=== PATIENT | female | born 1950 | race Caucasian/White ===

== ENCOUNTER 2018-08-27 10:22 | Observation (INO) | payer OTHER, BC ==
[2018-08-27] MEDS ORDERED: PANTOPRAZOLE INJ 80 MG in NA CHLORIDE 0.9% 250 ML IV ONE (11:15)
[2018-08-27] MEDS ORDERED: PANTOPRAZOLE 40 MG INJ ONE (11:17)
[2018-08-27] MEDS ORDERED: NA CHLORIDE 0.9% 1,000 ML ONE (11:17)
[2018-08-27 11:30] LABS: Absolute Lymphocytes (CBC) 1.7 K/uL (0.7-4.9); Absolute Monocytes 0.6 K/uL (0.1-1.3); Absolute Neutrophil 12.9 K/uL (1.8-8.0); Basophils % 0.5 % (0-1.3); Eosinophils % 0.1 % (0-4.4); Hematocrit 40.5 % (36.0-45.0); Lymphocytes % 10.9 % (15.3-44.8); MPV 9.9 fL (7.6-11.3); RBC Red Blood Cell Count 4.56 M/uL (3.86-4.86)
[2018-08-27 11:49] LABS: Albumin 3.4 g/dL (3.4-5.0); Bilirubin Direct 0.1 mg/dL (0-0.2); Bilirubin Total 0.8 mg/dL (0.2-1.0); Protein, Total 6.7 g/dL (6.4-8.2)
--- NOTE | 2018-08-27 12:18 | ER ---
Nurse's Notes [facility] Name: Minna Bernard Age: 67 yrs Sex: Female : 1950 Arrival Date: 08/27/2018 Time: 10:24 Bed 20 Private MD: Diagnosis: Epigastric pain;Gastrointestinal hemorrhage, unspecified Presentation: 08/27 10:32 Presenting complaint: Diarrhea and abdominal cramping x 2 days, bright red blood after hb BM x1 today. Transition of care: patient was not received from another setting of care. Onset of symptoms was August 26, 2018. Risk Assessment: Do you want to hurt yourself or someone else? Patient reports no desire to harm self or others. Care prior to arrival: None. 10:32 Method Of Arrival: Wheelchair hb 10:32 Acuity: FAM 3 hb 11:10 Initial Sepsis Screen: Does the patient meet any 2 criteria? No. Patient's initial sv sepsis screen is negative. Does the patient have a suspected source of infection? No. Patient's initial sepsis screen is negative. Historical: - Allergies: 10:34 No Known Allergies; hb - Home Meds: 10:34 Lipitor Oral [Active]; Lotrel Oral [Active]; hb - PMHx: 10:34 Hyperlipidemia; Hypertension; hb - PSHx: 10:34 Tummy Tuck; Cholecystectomy; hb - Immunization history:: Adult Immunizations up to date. - Social history:: Smoking status: Patient/guardian denies using tobacco, Patient uses Patient/guardian denies using alcohol, street drugs, The patient lives with family. - Ebola Screening: : No symptoms or risks identified at this time. - Family history:: not pertinent. Screenin:10 Abuse screen: Denies threats or abuse. Denies injuries from another. Nutritional sv screening: No deficits noted. Tuberculosis screening: No symptoms or risk factors identified. Fall Risk None identified. Assessment: 11:10 General: Appears in no apparent distress. comfortable, well groomed, well developed, sv Behavior is calm, cooperative, appropriate for age. Pain: Complains of pain in epigastric area Pain currently is 4 out of 10 on a pain scale. Quality of pain is described as crampy, Pain began this morning. Neuro: Level of Consciousness is awake, alert, obeys commands, Oriented to person, place, time, situation, Moves all extremities. Full function Gait is steady, Speech is normal. Respiratory: Respiratory effort is even, unlabored, Respiratory pattern is regular, symmetrical. GI: Abdomen is flat, Reports rectal bleeding. Derm: Skin is pink, warm \T\ dry. 12:37 Reassessment: Patient appears in no apparent distress at this time. No changes from sv previously documented assessment. Patient and/or family updated on plan of care and expected duration. Pain level reassessed. Patient is alert, oriented x 3, equal unlabored respirations, skin warm/dry/pink. 12:40 Reassessment: Dr Moore at the bedside. sv 14:00 Reassessment: Patient appears in no apparent distress at this time. No changes from sv previously documented assessment. Patient and/or family updated on plan of care and expected duration. Pain level reassessed. Patient is alert, oriented x 3, equal unlabored respirations, skin warm/dry/pink. 16:25 Reassessment: Nurse to call back for report. sv Vital Signs: 10:33 BP 103 / 91; Pulse 90; Resp 16; Temp 98.8; Pulse Ox 100% on R/A; Pain 4/10; hb 12:39 BP 126 / 56; Pulse 78; Resp 18; Pulse Ox 98% ; sv 13:30 BP 123 / 54; Pulse 71; Resp 18; Pulse Ox 99% ; sv 14:15 BP 123 / 45; Pulse 72; Resp 18; Pulse Ox 99% ; sv 15:36 BP 128 / 49; Pulse 73; Resp 16; Pulse Ox 100% ; sv 16:25 BP 126 / 51; Pulse 78; Resp 18; Pulse Ox 96% ; sv ED Course: 10:24 Patient arrived in ED. as 10:33 Triage completed. hb 10:33 Arm band placed on. hb 10:42 Viviana Mtz MD is Attending Physician. ma2 11:03 Tiffanie Candelaria RN is Primary Nurse. sv 11:10 Patient has correct armband on for positive identification. Bed in low position. Call light in reach. Adult w/ patient. Pulse ox on. NIBP on. Door closed. Warm blanket given. Head of bed elevated. 11:15 Initial lab(s) drawn, by me, sent to lab. Inserted saline lock: 22 gauge in right sv wrist, using aseptic technique. ,using aseptic technique. diffusics Blood collected. Flushed right with 5 ml normal saline. 11:18 Inserted saline lock: 20 gauge in right antecubital area, using aseptic technique. sv Flushed right antecubital with 5 ml normal saline. 12:16 Abner Moore DO is Hospitalizing Provider. ma2 12:19 Chest Single View XRAY In Process Unspecified. EDMS 16:24 No provider procedures requiring assistance completed. Patient admitted, IV remains in sv place. intact. Administered Medications: 11:34 Drug: NS 0.9% 1000 ml Route: IV; Rate: 1 bolus; Site: right wrist; sv 12:30 Follow up: Response: No adverse reaction; IV Status: Completed infusion; IV Intake: sv 1000ml 11:34 Drug: Pantoprazole 80 mg Route: IVP; Site: right wrist; sv 12:00 Follow up: Response: No adverse reaction sv 11:34 Drug: Pantoprazole 8 mg/hr Route: IV; Rate: 25 ml/hr; Site: right wrist; sv 16:42 Follow up: Response: No adverse reaction; IV Status: Infusion continued upon admission sv Intake: 12:30 IV: 1000ml; Total: 1000ml. sv Outcome: 12:16 Decision to Hospitalize by Provider. ma2 16:56 Admitted to Med/surg accompanied by tech, family with patient, via stretcher, room 216, sv with chart, Report called to Nelly DELACRUZ 16:56 Condition: stable 16:56 Instructed on the need for admit. 17:08 Patient left the ED. Signatures: Dispatcher [employer] EDTiffanie Guallpa RN RN sv Martinez, Amelia as Williams, Irene, RN RN Salud Mullen RN RN Viviana Mtz MD MD ma2
--- NOTE | 2018-08-27 12:18 | EDPHYS ---
Physician Documentation [facility] Name: Minna Bernard Age: 67 yrs Sex: Female : 1950 Arrival Date: 08/27/2018 Time: 10:24 Bed 20 Private MD: ED Physician Viviana Mtz HPI: 08/27 10:58 This 67 yrs old Female presents to ER via Wheelchair with complaints of ma2 Rectal Bleeding. 10:58 The patient presents to the emergency department with bleeding from the rectum/anus. ma2 Onset: The symptoms/episode began/occurred gradually, 1 day(s) ago. Context: the patient has no known special context relating to the rectal area complaint(s). Associate signs and symptoms: Pertinent positives: abdominal pain in the epigastric area, lower GI bleeding, Pertinent negatives: constipation, dysuria, fever. The patient has experienced similar episodes in the past. Historical: - Allergies: 10:34 No Known Allergies; hb - Home Meds: 10:34 Lipitor Oral [Active]; Lotrel Oral [Active]; hb - PMHx: 10:34 Hyperlipidemia; Hypertension; hb - PSHx: 10:34 Tummy Tuck; Cholecystectomy; hb - Immunization history:: Adult Immunizations up to date. - Social history:: Smoking status: Patient/guardian denies using tobacco, Patient uses Patient/guardian denies using alcohol, street drugs, The patient lives with family. - Ebola Screening: : No symptoms or risks identified at this time. - Family history:: not pertinent. ROS: 10:58 Constitutional: Negative for fever, chills, and weight loss, Cardiovascular: Negative ma2 for chest pain, palpitations, and edema, Respiratory: Negative for shortness of breath, cough, wheezing, and pleuritic chest pain, Abdomen/GI: Negative for abdominal pain, nausea, diarrhea, and constipation, MS/Extremity: Negative for injury and deformity, Neuro: Negative for headache, weakness, numbness, tingling, and seizure. 10:58 Abdomen/GI: Positive for abdominal pain, rectal bleeding. 10:58 All other systems are negative. Exam: 10:58 Constitutional: This is a well developed, well nourished patient who is awake, alert, ma2 and in no acute distress. Chest/axilla: Normal chest wall appearance and motion. Nontender with no deformity. No lesions are appreciated. Cardiovascular: Regular rate and rhythm with a normal S1 and S2. No gallops, murmurs, or rubs. Normal PMI, no JVD. No pulse deficits. Respiratory: Lungs have equal breath sounds bilaterally, clear to auscultation and percussion. No rales, rhonchi or wheezes noted. No increased work of breathing, no retractions or nasal flaring. Abdomen/GI: Soft, non-tender, with normal bowel sounds. No distension or tympany. No guarding or rebound. No evidence of tenderness throughout. Back: No spinal tenderness. No costovertebral tenderness. Full range of motion. Skin: Warm, dry with normal turgor. Normal color with no rashes, no lesions, and no evidence of cellulitis. MS/ Extremity: Pulses equal, no cyanosis. Neurovascular intact. Full, normal range of motion. Neuro: Awake and alert, GCS 15, oriented to person, place, time, and situation. Cranial nerves II-XII grossly intact. Motor strength 5/5 in all extremities. Sensory grossly intact. Cerebellar exam normal. Normal gait. Vital Signs: 10:33 BP 103 / 91; Pulse 90; Resp 16; Temp 98.8; Pulse Ox 100% on R/A; Pain 4/10; hb 12:39 BP 126 / 56; Pulse 78; Resp 18; Pulse Ox 98% ; sv 13:30 BP 123 / 54; Pulse 71; Resp 18; Pulse Ox 99% ; sv 14:15 BP 123 / 45; Pulse 72; Resp 18; Pulse Ox 99% ; sv 15:36 BP 128 / 49; Pulse 73; Resp 16; Pulse Ox 100% ; sv 16:25 BP 126 / 51; Pulse 78; Resp 18; Pulse Ox 96% ; sv MDM: 10:42 Patient medically screened. ma2 10:58 Differential diagnosis: epigastric abd pain ?gastritis vs pud + GI bleeding, no rectal ma2 pain. 12:15 Data reviewed: vital signs, nurses notes. Counseling: I had a detailed discussion with ma2 the patient and/or guardian regarding: the historical points, exam findings, and any diagnostic results supporting the discharge/admit diagnosis, the presence of at least one elevated blood pressure reading (>120/80) during this emergency department visit, the need for outpatient follow up. Response to treatment: the patient's symptoms have markedly improved after treatment. ED course: discussed with dr. de jesus and dr. norton nurse her name is Ms Ng. 08/27 10:52 Order name: Basic Metabolic Panel; Complete Time: 11:52 [facility] 08/27 10:52 Order name: CBC with Diff; Complete Time: 11:37 [facility] 08/27 10:52 Order name: Creatinine for Radiology [facility] 08/27 10:52 Order name: Hepatic Function; Complete Time: 11:52 [facility] 08/27 10:52 Order name: Lipase; Complete Time: 11:52 [facility] 08/27 10:52 Order name: Type And Screen [facility] 08/27 10:52 Order name: IV Saline Lock; Complete Time: 11:47 [facility] 08/27 10:52 Order name: Labs collected and sent; Complete Time: 11:47 [facility] 08/27 10:52 Order name: Chest Single View XRAY [facility] 08/27 13:17 Order name: ABO/RH no charge [facility] 08/27 11:47 Order name: Labs - recollect needed; Complete Time: 14:19 bd Administered Medications: 11:34 Drug: NS 0.9% 1000 ml Route: IV; Rate: 1 bolus; Site: right wrist; sv 12:30 Follow up: Response: No adverse reaction; IV Status: Completed infusion; IV Intake: sv 1000ml 11:34 Drug: Pantoprazole 80 mg Route: IVP; Site: right wrist; sv 12:00 Follow up: Response: No adverse reaction sv 11:34 Drug: Pantoprazole 8 mg/hr Route: IV; Rate: 25 ml/hr; Site: right wrist; sv 16:42 Follow up: Response: No adverse reaction; IV Status: Infusion continued upon admission sv Disposition: 08/27/18 12:16 Hospitalization ordered by Abner De Jesus for Inpatient Admission. Preliminary diagnosis are Epigastric pain, Gastrointestinal hemorrhage, unspecified. - Bed requested for Telemetry/MedSurg (Inpatient). - Status is Inpatient Admission. iw - Condition is Stable. - Problem is new. - Symptoms are unchanged. UTI on Admission? No Signatures: Dispatcher [employer] EDKY Jenise Harris Stephanie, RN RN sv Woody, Diana, RN RN dw Williams, Irene, RN RN Salud Mullen RN RN Viviana Mtz MD MD ma2 Corrections: (The following items were deleted from the chart) 15:16 12:16 Hospitalization Ordered by Abner De Jesus DO for Inpatient Admission. Preliminary dw diagnosis is Epigastric pain; Gastrointestinal hemorrhage, unspecified. Bed requested for Telemetry/MedSurg (Inpatient). Status is Inpatient Admission. Condition is Stable. Problem is new. Symptoms are unchanged. UTI on Admission? No. ma2 17:08 15:16 08/27/2018 12:16 Hospitalization Ordered by Abner De Jesus DO for Inpatient iw Admission. Preliminary diagnosis is Epigastric pain; Gastrointestinal hemorrhage, unspecified. Bed requested for Telemetry/MedSurg (Inpatient). Status is Inpatient Admission. Condition is Stable. Problem is new. Symptoms are unchanged. UTI on Admission? No. dw
--- NOTE | 2018-08-27 12:23 | RAD REPORT ---
EXAM DESCRIPTION: RAD - Chest Single View - 08/27/2018 12:18 pm CLINICAL HISTORY: COUGH Chest pain. COMPARISON: No comparisons FINDINGS: Portable technique limits examination quality. The lungs are grossly clear. The heart is normal in size. No displaced fractures. IMPRESSION: No acute intrathoracic process suspected.
--- NOTE | 2018-08-27 16:02 | P.HP ---
Certification for Inpatient Patient admitted to: Inpatient With expected LOS: >2 Midnights Patient will require the following post-hospital care: None Practitioner: I am a practitioner with admitting privileges, knowledge of patient current condition, hospital course, and medical plan of care. Services: Services provided to patient in accordance with Admission requirements found in Title 42 Section 412.3 of the Code of Federal Regulations Patient History Date of Service: 08/27/18 Primary Care Provider: Dr. Bee([place], [place]); GI-Dr. Santos Reason for admission: Epigastric pain, rectal bleeding History of Present Illness: 67-year-old female presented to the emergency room with epigastric pain and rectal bleeding. Patient reported rectal bleeding today. She noted it on toilet paper. She then reported some mild diarrhea with blood in the stool. She denies significant melena. Over the past month she has been somewhat constipated with diarrhea as well. Patient with history of hypertension, hyperlipidemia and GERD. She reports having a colonoscopy about 6-8 years ago. She had colon polyps removed at that time. Patient also reports epigastric pain that comes and goes as well. Upon further history patient has been using diclofenac for arthritis pain. In the ER patient evaluated. Hemoglobin stable at 13.1, white count 15.2. Sodium 140, potassium 4.0, being of 31, creatinine 1.4 with a GFR of 37. Glucose 145. Lipase unremarkable. Chest x-ray unremarkable. Patient admitted for further evaluation. ER was able to contact GI who will see the patient as well. When I saw the patient ER, she appeared comfortable. No further excessive rectal bleeding noted. No coughing or vomiting of blood. Patient denies any significant chest pain, shortness of breath. She overdoes reports some mild fatigue. Allergies No Known Allergies Allergy (Unverified 08/27/18 11:07) Home medications list reviewed: Yes - Past Medical/Surgical History Diabetic: No -: Hypertension -: Hyperlipidemia -: GERD -: Arthritis, knees -: Cholecystectomy -: Tummy tuck -: Cataract Psychosocial/ Personal History: Patient is . She has 2 children. - Family History Father -: Cancer (Throat cancer) - Social History Smoking Status: Never smoker Alcohol use: No CD- Drugs: No Caffeine use: No Place of Residence: Home Review of Systems General: Weakness, Malaise, As per HPI Eyes: Unremarkable ENT: Unremarkable Respiratory: Unremarkable Cardiovascular: Unremarkable Gastrointestinal: Abdominal Pain, Diarrhea, Constipation, Hematochezia, As per HPI Genitourinary: Unremarkable Musculoskeletal: Unremarkable Integumentary: Unremarkable Neurological: Unremarkable Lymphatics: Unremarkable Physical Examination - Physical Exam General: Alert, In no apparent distress, Oriented x3, Cooperative HEENT: Atraumatic, Normocephalic, PERRLA, Mucous membr. moist/pink Neck: Supple, No Thyromegaly Respiratory: Clear to auscultation bilaterally, Normal air movement Cardiovascular: Normal pulses, Regular rate/rhythm Gastrointestinal: Normal bowel sounds, Soft and benign, Non-distended, No ascites, No tenderness, No masses, No rebound, No guarding Musculoskeletal: No erythema, No tenderness, No warmth Integumentary: No tenderness/swelling, No erythema, No warmth, No cyanosis Neurological: Normal speech, Normal strength at 5/5 x4 extr, Normal tone, Normal affect - Studies Laboratory Data (last 24 hrs) 08/27/18 11:15: Creatinine 1.40 H 08/27/18 11:15: WBC 15.2 H, Hgb 13.1, Hct 40.5, Plt Count 283 08/27/18 11:15: Sodium 140, Potassium 4.0, BUN 31 H, Creatinine 1.40 H, Glucose 145 H, Total Bilirubin 0.8, AST 30, ALT 25, Alkaline Phosphatase 55, Lipase 89 Assessment and Plan - Plan Impression: Epigastric pain with rectal bleeding likely related to upper GI bleed complicated with chronic use of nonsteroidal anti-inflammatories Acute renal injury likely from dehydration and medication Hypertension Hyperlipidemia GERD Plan: Epigastric pain with rectal bleeding likely related to upper GI bleed complicated with chronic use of nonsteroidal anti-inflammatories: Patient will be admitted. Hemoglobin stable this time. Continue to monitor hemoglobin. If hemoglobin is significantly drops patient may require blood transfusion. Case discussed with GI. Patient will likely require EGD for further evaluation. Will discontinue diclofenac. Will teach about upper GI bleed. Patient started on IV Protonix drip and Rocephin. Await further recommendations from GI. Anticipate discharge in the next 48-72 hr. Acute renal injury likely from dehydration in medication: Will discontinue Lotrel and HCTZ at this time. Will monitor renal function. Continue IV fluids. Monitor hemoglobin closely. Continue as above. Hypertension: Will provide IV medication at this time. Will discontinue Lotrel and HCTZ due to acute renal insufficiency Hyperlipidemia: Hold medication at this time. GERD: Continue as above. Discharge Plan: Home Plan to discharge in: 72 Hours - Advance Directives Does patient have a Living Will: No Does patient have a Durable POA for Healthcare: No - Code Status/Comfort Care Code Status Assessed: Yes (Patient full code.) Time Spent Managing Pts Care (In Minutes): 55
[2018-08-27] MEDS ORDERED: ACETAMINOPHEN 650MG/RECT SUPP PR PRN (17:42)
[2018-08-27] MEDS ORDERED: ONDANSETRON 4 MG/2 ML VIAL IV PRN (17:42)
[2018-08-27] MEDS ORDERED: TRAMADOL HCL 50 MG TAB PO PRN (17:42)
[2018-08-27] MEDS ORDERED: MORPHINE 2 MG/ML SYR IV PRN (17:42)
[2018-08-27] MEDS ORDERED: HYDRALAZINE HCL 20 MG/ML VIAL IV PRN (17:42)
[2018-08-27] MEDS: NA CHLORIDE 0.9% 1,000 ML IV SCH ×2 (17:42→21:26)
[2018-08-27 18:06] LABS: Hematocrit 35.5 % (36.0-45.0)
[2018-08-27 18:35] LABS: Thyroid Stimulating Hormone 2.32 uIU/mL (0.360-3.740)
[2018-08-27] MEDS ORDERED: PNEUMOCOCCAL VACCINE 0.5 ML IMVAC ONE (19:00)
[2018-08-27] MEDS ORDERED: INFLUENZA VACCINE (for 3y+) 0.5 ML DOSE IMVAC ONE (19:00)
[2018-08-27 19:04] LABS: Urine Appearance CLEAR; Urine Bilirubin NEGATIVE (NEG); Urine Blood NEGATIVE (NEG); Urine Color ORANGE; Urine Glucose NEGATIVE (NEG); Urine Protein NEGATIVE (NEG); Urine pH 5.5 (5.0-7.0)
[2018-08-27 19:23] LABS: Urine Microscopic Reflex ORDER UMIC
[2018-08-27 19:36] LABS: Urine Bacteria >50 /HPF (<20); Urine Culture Reflex Order REFLEXED; Urine RBC <5 /HPF (NONE SEEN)
--- NOTE | 2018-08-27 20:19 | RAD REPORT ---
EXAM DESCRIPTION: US - Renal Ultrasound-Complete - 08/27/2018 8:09 pm CLINICAL HISTORY: CHRISTI, taking NSAIDS/HTN meds COMPARISON: <Comparisons> FINDINGS: Both kidneys are normal in size, shape and echotexture. The right kidney measures 10.3 x 5.1 x 5.0 cm. No hydronephrosis, focal mass or perinephric fluid. The left kidney measures 10.0 x 4.9 x 4.8 cm. No hydronephrosis, focal mass or perinephric fluid. The urinary bladder is incompletely distended without gross abnormality seen. IMPRESSION: Unremarkable renal sonogram.
[2018-08-27] MEDS ORDERED: CEFTRIAXONE/SWI 1gm 1 GM/10 ML SYR IV SCH (21:00)
[2018-08-27] MEDS: PANTOPRAZOLE INJ 80 MG in NA CHLORIDE 0.9% 250 ML IV SCH (21:25)
[2018-08-28 04:29] LABS: Absolute Lymphocytes (CBC) 2.5 K/uL (0.7-4.9); Absolute Monocytes 0.7 K/uL (0.1-1.3); Absolute Neutrophil 6.3 K/uL (1.8-8.0); Eosinophils % 0.8 % (0-4.4); Hematocrit 33.6 % (36.0-45.0); Lymphocytes % 25.5 % (15.3-44.8); MPV 10.4 fL (7.6-11.3); Monocytes % 7.6 % (3.3-12.3); RBC Red Blood Cell Count 3.75 M/uL (3.86-4.86)
[2018-08-28 04:42] LABS: Magnesium 1.9 mg/dL (1.8-2.4); Phosphorus 2.5 mg/dL (2.5-4.9); Potassium 3.6 mmol/L (3.5-5.1); Uric Acid 6.3 mg/dL (2.6-6.0)
[2018-08-28] MEDS ORDERED: KCL 20 MEQ/100 mL IVPB 20 MEQ/100 ML BAG IV SCH (06:00)
[2018-08-28] MEDS ORDERED: CEFTRIAXONE 1 GM/NS 50 ML 1 GM/50 ML BAG IV SCH (09:00)
[2018-08-28] MEDS: PANTOPRAZOLE INJ 80 MG in NA CHLORIDE 0.9% 250 ML IV SCH (09:25)
--- NOTE | 2018-08-28 10:38 | P.DS ---
Admission Date: 08/27/18 Discharge Date: 08/28/18 Primary Care Provider: Dr. Bee([place], [place]); GI-Dr. Santos Disposition: ROUTINE DISCHARGE Discharge Condition: GOOD Reason for Admission: Epigastric pain, rectal bleeding Consultations: GI-Dr. Rojas Procedures: Renal US: FINDINGS: Both kidneys are normal in size, shape and echotexture. The right kidney measures 10.3 x 5.1 x 5.0 cm. No hydronephrosis, focal mass or perinephric fluid. The left kidney measures 10.0 x 4.9 x 4.8 cm. No hydronephrosis, focal mass or perinephric fluid. The urinary bladder is incompletely distended without gross abnormality seen. IMPRESSION: Unremarkable renal sonogram. Medical Problem List: Epigastric pain with rectal bleeding likely related to upper GI bleed complicated with chronic use of nonsteroidal anti-inflammatories Acute renal injury likely from dehydration and medication Hypertension GERD Depression Brief History of Present Illness: 67-year-old female presented to the emergency room with epigastric pain and rectal bleeding. Patient reported rectal bleeding today. She noted it on toilet paper. She then reported some mild diarrhea with blood in the stool. She denies significant melena. Over the past month she has been somewhat constipated with diarrhea as well. Patient with history of hypertension, hyperlipidemia and GERD. She reports having a colonoscopy about 6-8 years ago. She had colon polyps removed at that time. Patient also reports epigastric pain that comes and goes as well. Upon further history patient has been using diclofenac for arthritis pain. In the ER patient evaluated. Hemoglobin stable at 13.1, white count 15.2. Sodium 140, potassium 4.0, being of 31, creatinine 1.4 with a GFR of 37. Glucose 145. Lipase unremarkable. Chest x-ray unremarkable. Patient admitted for further evaluation. ER was able to contact GI who will see the patient as well. When I saw the patient ER, she appeared comfortable. No further excessive rectal bleeding noted. No coughing or vomiting of blood. Patient denies any significant chest pain, shortness of breath. She overdoes reports some mild fatigue. Hospital Course: Patient presented with epigastric pain with noted rectal bleeding. Upper GI bleed was suspected. Patient had been using nonsteroidal anti-inflammatories for arthritic pain. Patient had mild anemia. Hemoglobin remained stable during the course of her stay. Patient received IV Protonix. Patient seen and evaluated by GI. Since hemoglobin remained stable and patient had no further rectal bleeding, patient was able to be discharged home. Patient able tolerate GI soft diet at discharge. At discharge recommend to discontinue diclofenac. Patient may take Tylenol as needed for pain. Patient will continue with Protonix 40 mg daily. Patient will follow up with GI this week for EGD evaluation. Patient also had acute renal injury likely from dehydration and medication. Lotrel and hydrochlorothiazide was discontinued due to her renal injury. Patient received IV fluids with improvement. Renal ultrasound unremarkable. Patient with hypertension. At discharge will recommend to discontinue Lotrel and hydrochlorothiazide. Patient may continue with Norvasc 5 mg daily. Recommend to maintain blood pressures less 150/80. Further adjustment may be required. Recommend to recheck lab-BMP in 1 week to monitor progress. Recommend to follow up with nephrology at that time as well. Patient with depression. Patient may continue with her medication. Vital Signs/Physical Exam: Temp Pulse Resp BP Pulse Ox 97.8 F 81 20 132/62 98 08/28/18 08:00 08/28/18 08:00 08/28/18 08:00 08/28/18 08:00 08/28/18 08:00 General: Alert, In no apparent distress, Oriented x3, Cooperative HEENT: Atraumatic Neck: Supple Respiratory: Clear to auscultation bilaterally, Normal air movement Cardiovascular: Normal pulses, Regular rate/rhythm Gastrointestinal: Normal bowel sounds, Soft and benign, Non-distended, No tenderness, No masses, No rebound, No guarding Musculoskeletal: No erythema, No tenderness, No warmth Integumentary: No tenderness/swelling, No erythema, No warmth, No cyanosis Neurological: Normal speech, Normal strength at 5/5 x4 extr, Normal tone, Normal affect Laboratory Data at Discharge: WBC 9.8 K/uL (4.3-10.9) D 08/28/18 03:46 Hgb 11.0 g/dL (12.0-15.0) L 08/28/18 03:46 Hct 33.6 % (36.0-45.0) L 08/28/18 03:46 Plt Count 211 K/uL (152-406) D 08/28/18 03:46 Sodium 144 mmol/L (136-145) 08/28/18 03:46 Potassium 3.6 mmol/L (3.5-5.1) 08/28/18 03:46 BUN 21 mg/dL (7-18) H 08/28/18 03:46 Creatinine 1.13 mg/dL (0.55-1.3) 08/28/18 03:46 Glucose 113 mg/dL (74-106) H 08/28/18 03:46 Uric Acid 6.3 mg/dL (2.6-6.0) H 08/28/18 03:46 Phosphorus 2.5 mg/dL (2.5-4.9) 08/28/18 03:46 Magnesium 1.9 mg/dL (1.8-2.4) 08/28/18 03:46 Total Bilirubin 0.8 mg/dL (0.2-1.0) 08/27/18 11:15 AST 30 U/L (15-37) 08/27/18 11:15 ALT 25 U/L (12-78) 08/27/18 11:15 Alkaline Phosphatase 55 U/L (45-117) 08/27/18 11:15 Lipase 89 U/L (73-393) 08/27/18 11:15 Home Medications: Escitalopram [Lexapro*] 10 mg PO DAILY 08/27/18 Amlodipine Besylate [Norvasc] 5 mg PO DAILY #30 tablet 08/28/18 Pantoprazole [Protonix Tab] 40 mg PO DAILY #30 tab 08/28/18 New Medications: Amlodipine Besylate [Norvasc] 5 mg PO DAILY #30 tablet Pantoprazole [Protonix Tab] 40 mg PO DAILY #30 tab Patient Discharge Instructions: 1. Patient will follow up with a PCP in 1 week to follow up this hospitalization. 2. Patient presented with epigastric pain with noted rectal bleeding. Upper GI bleed was suspected. Patient had been using nonsteroidal anti-inflammatories for arthritic pain. Patient had mild anemia. Hemoglobin remained stable during the course of her stay. Patient received IV Protonix. Patient seen and evaluated by GI. Since hemoglobin remained stable and patient had no further rectal bleeding, patient was able to be discharged home. Patient able tolerate GI soft diet at discharge. At discharge recommend to discontinue diclofenac. Patient may take Tylenol as needed for pain. Patient will continue with Protonix 40 mg daily. Patient will follow up with GI this week for EGD evaluation. 3. Patient also had acute renal injury likely from dehydration and medication. Lotrel and hydrochlorothiazide was discontinued due to her renal injury. Patient received IV fluids with improvement. Renal ultrasound unremarkable. Patient with hypertension. At discharge will recommend to discontinue Lotrel and hydrochlorothiazide. Patient may continue with Norvasc 5 mg daily. Recommend to maintain blood pressures less 150/80. Further adjustment may be required. Recommend to recheck lab-BMP in 1 week to monitor progress. Recommend to follow up with nephrology at that time as well. 4. Patient with depression. Patient may continue with her medication. Diet: GI soft diet Activity: Ad alanna Time spent managing pt's care (in minutes): 55
[2018-08-28] MEDS: NA CHLORIDE 0.9% 1,000 ML IV SCH (13:42)
--- NOTE | 2018-08-28 15:55 | ECHO ---
HEIGHT: 5 ft 6 in WEIGHT: 181 lb 6.4 oz DATE OF STUDY: 08/28/[address]: Abner Moore DO 2-DIMENSIONAL: YES M.MODE: YES DOPPLER: YES COLOR FLOW: YES TDS: NO PORTABLE: NO DEFINITY: NO BUBBLE STUDY: NO DIAGNOSIS: MURMUR, HYPERTENSION, GI BLEED CARDIAC HISTORY: CATHERIZATION: NO SURGERY: NO PROSTHETIC VALVE: NO PACEMAKER: NO MEASUREMENTS (cm) DIASTOLIC (NORMALS) SYSTOLIC (NORMALS) IVSd 1.0 (0.6-1.2) LA Diam 4.2 (1.9-4.0) LVEF 83% LVIDd 4.1 (3.5-5.7) LVIDs 2.0 (2.0-3.5) %FS 52% LVPWd 1.1 (0.6-1.2) Ao Diam 2.2 (2.0-3.7) 2 DIMENSIONAL ASSESSMENT: RIGHT ATRIUM: NORMAL LEFT ATRIUM: DILATED RIGHT VENTRICLE: NORMAL LEFT VENTRICLE: NORMAL TRICUSPID VALVE: NORMAL MITRAL VALVE: MITRAL ANNULAR CALCIFICATION PULMONIC VALVE: NORMAL AORTIC VALVE: STENOTIC PERICARDIAL EFFUSION: NONE AORTIC ROOT: NORMAL LEFT VENTRICULAR WALL MOTION: NORMAL. DOPPLER/COLOR FLOW: SEVERE AORTIC STENOSIS AREA .8 CENTIMETERS SQUARED. PEAK GRADIENT 70mmHg. COMMENTS: SEVERE AORTIC STENOSIS- AREA .8 CENTIMETERS SQUARED. MILD TRICUSPID REGURGITATION NORMAL RIGHT VENTRICULAR SYSTOLIC PRESSURE. NORMAL LEFT VENTRICULAR SIZE AND FUNCTION. TECHNOLOGIST: YANIRA HAYNES
== END 2018-08-28 15:00 | disposition home or self-care (01) ==
LOC: ER 10:22 → ERHOLD 13:22 → INTOOBSV 13:22 → 2ND 16:28
PROVIDERS: ADMIT Family Medicine; ATTEND Family Medicine
DX: R10.13 Epigastric pain (principal); K62.5 Hemorrhage of anus and rectum; N17.9 Acute kidney failure, unspecified; I10 Essential (primary) hypertension; K21.9 Gastro-esophageal reflux disease without esophagitis; E78.5 Hyperlipidemia, unspecified; F32.9 Major depressive disorder, single episode, unspecified; Z79.1 Long term (current) use of non-steroidal anti-inflammatories (NSAID)
CPT/HCPCS: 96365; 93306; 87088; 85025 ×2; 87086; 80048 ×2; 36415; 86900; 83735; 86850; 84100; 86901; 80076; 84550; 84443; 87077; 87186; 85018; 85014; 84439; 83690; 83880; 71045; 76770; 99285; 96366; C9113 ×3; J0696; J7030 ×3; G0378 ×2; 81003; 81015